=== PATIENT | female | born 1970 | race Caucasian/White ===

== ENCOUNTER 2021-08-25 08:38 | Emergency (ER) | payer BC, SELFPAY ==
[2021-08-25 08:59] VITALS: BP 108/72; PULSE 72; RESP 18; TEMP 35.9; O2SAT 100; BMI 23.5
[2021-08-25] MEDS: Ondansetron ODT 4 MG TAB.RAPDIS TRANSLINGU (09:03)
--- NOTE | 2021-08-25 09:52 | ED.HA ---
HPI - Headache General Chief Complaint: Headache Stated Complaint: migraine Time Seen by Provider: 08/25/21 09:47 Source: patient and family () Mode of arrival: ambulatory Limitations: no limitations History of Present Illness HPI Narrative: 51-year-old female 33 years history of migraine, presented with typical headache for her migraine since yesterday started at 13:00 yesterday, pain has been constant, described as severe 10/10, triggered yesterday with exercise after she ran, pain is associated with photophobia, nausea. Patient had similar migraines in the past come to the hospital usually responds well to Imitrex subQ. Patient is here requesting a shot of Imitrex. No family history of brain tumor or bleed or cerebral aneurysm. Related Data Previous Rx's Medication Instructions Recorded ondansetron 4 mg disintegrating 4 mg PO BEDTIME PRN 3 Days #10 tab 08/25/21 tablet Allergies Allergy/AdvReac Type Severity Reaction Status Date / Time No Known Allergies Allergy Verified 08/25/21 09:01 Review of Systems Review of Systems: All other systems are reviewed and are negative Constitutional: Reports as per HPI and Reports no additional constitutional complaints Eyes: Reports as per HPI and Reports no additional eye complaints Reports system reviewed and no additional complaints, except as documented Cardiovascular: Reports as per HPI and Reports no additional cardiovascular complaints Respiratory: Reports as per HPI and Reports no additional respiratory complaints Gastrointestinal: Reports as per HPI and Reports no additional gastrointestinal complaints Genitourinary: Reports no additional female genitourinary complaints Musculoskeletal: Reports no additional musculoskeletal complaints Skin/Breast: Reports system reviewed and no additional complaints, except as docu Psychiatric: Reports no additional psychiatric complaints Endocrine: Reports no additional endocrine complaints Hematologic/Lymphatic: Reports no additional hematologic/lymphatic complaints Allergic/Immunologic: Reports no additional allergic/immunologic complaints Reports system reviewed and no additional complaints, except as documented and Reports Abnormal speech present [facility] Past Medical History Medical History Migraine Social History Social History Advance Directives: Yes Advance Directives Information Provided: Yes Advance Directives on File: No Physical Exam Vital Signs: Vital Signs: Last Vital Signs Temp 96.7 F L 08/25/21 08:59 Pulse 57 08/25/21 10:20 Resp 16 08/25/21 10:20 BP 129/72 08/25/21 10:20 Pulse Ox 100 08/25/21 10:20 BMI result Body Mass Index 23.5 Vital signs have been reviewed as appeared to be correct. Blood pressure normal. Heart rate normal. Respiration rate normal. Temperature normal. Oxygen saturation normal. Appearance: Alert. Oriented X3. No acute distress. Head: Normal external exam. Normocephalic. Atraumatic. No Carrera signs noted. No raccoon eyes noted Eyes: PERRLA. EOMI. Conjunctiva and sclera normal. Eyelids normal. ENT: TM's Normal. Pharynx normal. Uvula midline. Moist mucous membranes. No trismus noted. No drooling noted. No muffled voice noted. Neck: Normal inspection. Neck supple. FROM. No adenopathy. Thyroid Normal. No meningeal signs. No neck mass noted. CVS: Normal heart rate and rhythm. Heart sound normal. No murmurs noted. Pulses normal throughout. Respiratory: No respiratory distress. Painless inspiration. Breath sounds normal. No wheezes/rales/rhonchi noted. Chest nontender. No accessory muscle usage noted or decreased air movement noted. Abdomen: Soft and nontender. Bowel sounds normal in all 4 quadrants. No distention noted. No organomegaly noted. No visible injury noted. Back: No CVA tenderness. Full range of motion noted. Skin: Skin warm and dry. Normal skin color. Normal skin turgor. No rashes/lesions/lacerations noted. Extremities: No lower extremity edema. Extremities exhibit normal range of motion. Extremities nontender. Neuro: Oriented X 3. Cranial nerve exam: II-XII are grossly intact No motor deficit. No sensory deficit. Reflexes normal. Course Course Course Narrative: Assessment and plan. 51-year-old female with many years history of migraine presented with headache, patient received Imitrex that usually relieve her symptoms, patient feels much better now, patient would like to go requesting a prescription for Zofran. Headache partially relieved now it is 1/10, no photophobia, no vomiting. Discharge Plan Discharge Clinical Impression: Migraine Patient Disposition: Home, Self-Care Instructions: Migraine Headache (ED) Prescriptions: New ondansetron 4 mg tablet,disintegrating 4 mg PO BEDTIME PRN (Reason: nausea and vomiting) 3 Days Qty: 10 0RF Referrals: Becky Neff MD [Primary Care Provider] - 2 days
[2021-08-25] MEDS: SUMAtriptan succinate 6 MG/0.5 ML VIAL SUBCUT (09:57)
[2021-08-25 10:20] VITALS: BP 129/72; PULSE 57; RESP 16; O2SAT 100
== END 2021-08-25 10:32 | disposition home or self-care (01) ==
PROVIDERS: Emergency Provider Emergency Medicine; PCP Internal Medicine
DX: G43.909 Migraine, unspecified, not intractable, without status migrainosus (principal)
CPT/HCPCS: 96372; 99284; J3030

== ENCOUNTER 2023-11-17 03:24 | Emergency (ER) | payer BC, SELFPAY ==
[2023-11-17 03:33] VITALS: BP 102/72; PULSE 78; RESP 16; TEMP 37.7; O2SAT 99; BMI 21.0
[2023-11-17] MEDS: Ondansetron ODT 4 MG TAB.RAPDIS TRANSLINGU (03:52)
--- OUTSIDE RECORDS SUMMARY | 2023-11-17 05:34 | XMS_ITS | Continuity of Care Document ---
Author Organization [facility] Address [address], 4t [place] [address]- Care Team Providers Care Archives Director Name Role Phone Becky Neff MD Primary Care Physician [place] [facility] [place] - 02/03/21 [facility] [address], [address]th [place] [address]- Attending Physician: Magdalena Patten Admitting Physician: Magdalena Patten Referring Physician: AdmtrMagdalena Allergies, Adverse Reactions, Alerts Substance Reaction Severity Status NKA Active Immunizations Given and Recorded Vaccine Date Status Refusal Reason influenza virus vaccine, inactivated 04/24/20 Madi rded tetanus/diphtheria/pertussis, acel(Tdap) 08/17/16 Given Medications acyclovir 400 mg oral tablet 1 capsule, By Mouth, 3 times a day, # 15 capsule, 3 Refills, Maintenance, 07/13/20 9:06:00 EST, Capsule, [id number], Partial fill upon patient request if the prescription is for a schedule IIopioid drug., 169, cm, 05/09/20 10:10:00 EST, Height Start Date: 07/13/20 Stop Date: 08/02/20 Status: Ordered Apri 0.15 mg-0.03 mg oral tablet 1 tablet, By Mouth, Daily, take 21 days of active tablets then skip placebos and start the next pack, # 84 tablet, 3 Refills, Maintenance, 12/07/20 8:27:00 EDT, Tablet, [id number], 1 tablet By Mouth Daily,Instr:take 21 days of active tablets t... Start Date: 12/07/20 Status: Ordered Golytely - oral powder for reconstitution See Instructions, as directed, # 1 each, 0 Refills, Maintenance, 06/27/20 13:26:00 EST, [facility]/pharmacy #[id number], Partial fill upon patient request if the prescription is for a schedule II opioid drug., asdirected, 169, cm, 05/09/20 10:10:00 EST, Height Start Date: 06/27/20 Status: Ordered Liletta 52 mg intrauterine device 1 each = 52 mg, Once, 0 Refills, Maintenance, 08/26/19 9:22:00 EST Start Date: 08/26/19 Status: Ordered Problem List Condition Effective Dates Status Health Status Inform ant Chronic constipation(Confirmed) 10/05/14 Active Family history of colon canc er in sister(Confirmed) Active Menorrhagia(Confirmed) Active Migraine(Confirmed) Active Pituitary microadenoma non-functioning(Confirmed) Active Thrombocytopenia(Confirmed) Active 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
--- OUTSIDE RECORDS SUMMARY | 2023-11-17 05:35 | XMS_ITS | Continuity of Care Document ---
Author Organization [facility] Address [address] [place] [address]- Care Team Providers Care County Administrator Name Role Phone Becky Neff MD Primary Care Physician [place] [facility] [place] 02/08/20 - 03/13/[address] [address]- [facility] Attending Physician: Becky Neff MD Admitting Physician: Becky Neff MD Referring Physician: Becky Neff MD Allergies, Adverse Reactions, Alerts Substance Reaction Severity Status NKA Active Immunizations Given and Recorded Vaccine Date Status Refusal Reason tetanus/diphtheria/pertussis, acel(Tdap) 08/17/16 Given Medications Apri 0.15 mg-0.03 mg oral tablet 1 tablet, By Mouth, Daily, # 84 tablet, 0 Refills, Maintenance, 03/04/20 8:00:00 EDT, Tablet, [id number], 1 tablet By Mouth Daily, 169, cm, 02/08/20 8:40:00 EDT, Height Start Date: 03/04/20 Status: Ordered Liletta 52 mg intrauterine device 1 each = 52 mg, Once, 0 Refills, Maintenance, 08/26/19 9:22:00 EST Start Date: 08/26/19 Status: Ordered Problem List Condition Effective Dates Status Health Status Inform ant Chronic constipation(Confirmed) 10/05/14 Active Family history of colon canc er in sister(Confirmed) Active IUD check up(Confirmed) Active Menorrhagia(Confirmed) Active Migraine(Confirmed) Active Pituitary microadenoma non-functioning(Confirmed) Active Thrombocytopenia(Confirmed) Active 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
--- OUTSIDE RECORDS SUMMARY | 2023-11-17 05:35 | XMS_ITS | Continuity of Care Document ---
Author Organization [facility] Address [address] [facility] [address] [facility] [address] [facility], 4t [place] [address]- Care Team Providers Care Marine Geologist Name Role Phone Tawanda DIALLO, Becky Corrigan Primary Care Physician [facility] [place] Date(s): 01/12/21 - [facility]/11/21 [facility] [address] [facility] [address] [facility], [address] [place] [address]- Allergies, Adverse Reactions, Alerts Substance Reaction Severity [...] each, 0 Refills, Maintenance, 06/27/20 13:26:00 EST, [facility]/pharmacy #[id number], Partial fill upon patient request if the [...]
--- OUTSIDE RECORDS SUMMARY | 2023-11-17 05:35 | XMS_ITS | Continuity of Care Document ---
Author Organization [facility] Address [address] [place] [address], [address]t [place] [address]- Care Team Providers Care Type Proof Reproducer Name Role Phone Becky Neff MD [id number] - 11[facility]08[facility] [address] [facility], [address] [place], [place] [address] Allergies, Adverse Reactions, Alerts No Known Allergies Immunizations Given and Recorded Vaccine Date Status Refusal Reason influenza virus vaccine, inactivated 07/19/22 Give n influenza virus vaccine, inactivated 04/24/20 Madi rded SARS-CoV-2 (COVID-19) mRNA-1273 vaccine 07/06/21 R ecorded SARS-CoV-2 (COVID-19) mRNA-1273 vaccine 10/31/20 R ecorded SARS-CoV-2 (COVID-19) mRNA-1273 vaccine 10/03/20 R ecorded tetanus/diphtheria/pertussis, acel(Tdap) 08/17/16 Given Medications acyclovir 400 mg oral tablet 1 capsule, By Mouth, 3 times a day, # 15 capsule, 3 Refills, Maintenance, 08/13/23 13:34:00 EST, Capsule, [id number], Partial fill upon patient request if the prescription is for a schedule II opioid drug., 168, cm, 07/23/23 8:38:00 EST, Height Start Date: 08/13/23 Stop Date: 09/02/23 Status: Ordered Apri 0.15 mg-0.03 mg oral tablet See Instructions, TAKE 1 TABLET BY MOUTH DAILY,TAKE 21 DAYS OF ACTIVE TABLETS THEN SKIP PLACEBOS & START THE NEXT PACK, # 112 tablet, 3 Refills, Maintenance, 09/23/23 10:49:00 EDT, [facility]/pharmacy #[id number], 84, TAKE 1 TABLET BY MOUTH DAILY,TAKE 21 DAYS OF A... Start Date: 09/23/23 Status: Ordered MiraLax = 17 Gm, By Mouth, Daily, 0 Refills, Maintenance, 07/17/21 11:35:00 EST, Partial fill upon patient request if the prescription is for a schedule II opioid drug. Start Date: 07/17/21 Status: Ordered SUMAtriptan 100 mg oral tablet See Instructions, TAKE 1 TABLET DAILY IF NEEDED FOR MIGRAINE, MAY REPEAT DOSE AFTER 2 HOURS UP TO AMAXIMUM OF 2, # 27 tablet, 11 Refills, Maintenance, 02/20/23 17:05:00 EDT, [facility]/pharmacy #[id number], 168,cm, 07/19/22 8:44:00 EST, Height Start Date: 02/20/23 Status: Ordered Problem List Condition Confirmation Course Effective Dates Status H ealth Status Informant Chronic constipation Confirmed 10/05/14 Active Family history of colon cancer in sister Confirmed Active Family history of stomach cancer 1 Confirmed Active History of uveitis Confirmed Active Menorrhagia Confirmed Active Migraine Confirmed Active Pituitary microadenoma non-functioning Confirmed Active Thrombocytopenia Confirmed Active Uses oral contraception Confirmed Active Uveitis right eye Confirmed 11/16/93 Active 1Father, maternal grandmother, maternal grandfather Social History Social History Type Response Smoking Status Never (less than 100 in lifetime) entered on: 06/09/18 Sex Patient Care team information Care Team Personnel Name: Arben Tamayo MD Position: [facility] Physician - Gastroenterology Member Role: Lifetime Consulting Physician Address: Address: [address] [place] [address], [address] [facility] [place] [address]- Name: Becky Neff MD Position: [facility] Physician - Primary Care Member Role: PCP Address: Address: [address] [facility] [place] [address]- Care Team Related Persons Name: CHRISSIE RANGEL Address: home [address] [place] [id number]
--- OUTSIDE RECORDS SUMMARY | 2023-11-17 05:35 | XMS_ITS | Continuity of Care Document ---
Author Organization [facility] Address [address], [address] [place] [address]- Care Team Providers Care Railcar Foreman Name Role Phone Tawanda DIALLO, Becky Corrigan Primary Care Physician [phone] Encounter [facility] Date(s): [facility]07[facility]20 [facility] [address], [address] [place] [address]- Allergies, Adverse Reactions, Alerts Substance Reaction Severity [...] each, 0 Refills, Maintenance, 06/27/20 13:26:00 EST, [facility]/pharmacy #[id number], Partial fill upon patient request if the prescription is for a schedule II opioid drug., asdirected, 169, cm, 05/09/20 10:10:00 EST, Height Start Date: 06/27/20 Status: Ordered Liletta 52 mg intrauterine device 1 each = 52 mg, Once, 0 Refills, Maintenance, 08/26/19 9:22:00 EST Start Date: 08/26/19 Status: Ordered Problem List Condition Effective Dates Status Health Status Inform ant Breakthrough bleeding(Confirmed) Active Chronic constipation(Confirmed) 10/05/14 Active Family history of colon canc er in sister(Confirmed) Active IUD check up(Confirmed) Active Menorrhagia(Confirmed) Active Migraine(Confirmed) Active Pituitary microadenoma non-functioning(Confirmed) Active Thrombocytopenia(Confirmed) Active 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
--- OUTSIDE RECORDS SUMMARY | 2023-11-17 05:35 | XMS_ITS | Continuity of Care Document ---
Author Organization [facility] Address [address] [place] [address]- Care Team Providers Care Data Support Specialist Name Role Phone Becky Neff MD Primary Care Physician En[place] [facility] [place] Date(s): 06/17/23 - 07/17/23 [facility] [address] [place] [address] Allergies, Adverse Reactions, Alerts No Known Allergies Immunizations Given and Recorded Vaccine Date Status Refusal Reason influenza virus vaccine, inactivated 07/19/22 Give n influenza virus vaccine, inactivated 04/24/20 Madi rded SARS-CoV-2 (COVID-19) mRNA-1273 vaccine 07/06/21 R ecorded SARS-CoV-2 (COVID-19) mRNA-1273 vaccine 10/31/20 R ecorded SARS-CoV-2 (COVID-19) mRNA-1273 vaccine 10/03/20 R ecorded tetanus/diphtheria/pertussis, acel(Tdap) 08/17/16 Given Medications acyclovir 400 mg oral tablet See Instructions, TAKE 1 TABLET BY MOUTH THREE TIMES A DAY FOR 5 DAYS, # 15 tablet, 3 Refills, [id number], 168, cm, 07/17/21 11:23:00 EST, Height, 64, kg, 09/22/20 9:20:00 EDT, Dry Weight Start Date: 10/19/21 Status: Ordered acyclovir 400 mg oral tablet 1 capsule, By Mouth, 3 times a day, # 15 capsule, 3 Refills, Maintenance, 07/13/20 9:06:00 EST, Capsule, [id number], Partial fill upon patient request if the prescription is for a schedule IIopioid drug., 169, cm, 05/09/20 10:10:00 EST, Height Start Date: 07/13/20 Stop Date: 08/02/20 Status: Ordered Apri 0.15 mg-0.03 mg oral tablet See Instructions, TAKE 1 TABLET BY MOUTH DAILY,TAKE 21 DAYS OF ACTIVE TABLETS THEN SKIP PLACEBOS & START THE NEXT PACK, # 112 tablet, 0 Refills, Maintenance, 06/05/23 13:24:00 EST, [id number], 84, TAKE 1 TABLET BY MOUTH DAILY,TAKE 21 DAYS OF ACTI... Start Date: 06/05/23 Status: Ordered MiraLax = 17 Gm, By [...] tablet, 11 Refills, Maintenance, 02/20/23 17:05:00 EDT, [facility]/pharmacy #[id number], 168,cm, 07/19/22 8:44:00 EST, Height Start [...] microadenoma non-functioning Confirmed Active Thrombocytopenia Confirmed Active Uveitis right eye Confirmed 11/16/93 Active 1Father, maternal grandmother, maternal grandfather Social History Social History Type Response Smoking Status Never (less than 100 in lifetime) entered on: 06/09/18 Sex Patient Care team information Care Team Personnel Name: Arben Tamayo MD Position: [facility] Physician - Gastroenterology Member Role: Lifetime Consulting Physician Address: Address: [address] [place] [address], [address] [facility] [address]- Name: Becky Neff MD Position: [facility] Physician - Primary Care Member Role: PCP Address: Address: [address] [facility] [place] [address]- Care Team Related Persons Name: CHRISSIE RANGEL Address: home [address] [place] [id number]
--- OUTSIDE RECORDS SUMMARY | 2023-11-17 05:35 | XMS_ITS | Continuity of Care Document ---
Author Organization [facility] Address [address] [facility], 4t [place] [address]- Care Team Providers Care Spiral Winder Name Role Phone Becky Neff MD Primary Care Physician [place] [facility] [place] 12/15/20 - 04/14/21 [facility] [address] [facility], [address] [place] [address]- Attending Physician: Toby DIALLO [OB], Swetha Garcia Referring Physician: Not on Staff, Referring MD Allergies, Adverse Reactions, Alerts Substance Reaction [...] 0 Refills, Maintenance, 06/27/20 13:26:00 EST, [facility]/pharmacy #[id number], Partial fill upon patient request if the [...]
--- OUTSIDE RECORDS SUMMARY | 2023-11-17 05:35 | XMS_ITS | Continuity of Care Document ---
Author Organization [facility] Address [address] [facility], 4t [place] [address]- Care Team Providers Care Taxonomist Name Role Phone Tawanda DIALLO, Becky Corrigan Primary Care Physician En[place] [facility] [place] Date(s): 12/15/20 - 01/18/21 [facility] [address] [facility], [address] [place] [address]- Attending Physician: Toby DIALLO [OB], Swetha Garcia Allergies, Adverse Reactions, Alerts Substance Reaction Severity [...] each, 0 Refills, Maintenance, 06/27/20 13:26:00 EST, [facility]/pharmacy #[id number], Partial fill upon patient request if [...]
--- OUTSIDE RECORDS SUMMARY | 2023-11-17 05:35 | XMS_ITS | Continuity of Care Document ---
Author Organization [facility] Address [address] [address]- Care Team Providers Care Teacher Aide Clerical Name Role Phone Becky Neff MD Primary Care Physician [place] [facility] [place] [id number] Date(s): 02/08/20 - 03/09/20 [facility] [address] [address]- [facility] Attending Physician: Magdalena Patten Admitting Physician: Magdalena [...]
--- OUTSIDE RECORDS SUMMARY | 2023-11-17 05:35 | XMS_ITS | Continuity of Care Document ---
Author Organization [facility] Address [address] [place] [address], [address] [place] [address]- Care Team Providers Care Diamond Die Driller Name Role Phone Becky Neff MD Primary Care Physician [id number] Date(s): 10/17/21 - 11/16/21 [facility] [address] [facility], [address] [place], [place] [address] [[email or web address]] Allergies, Adverse Reactions, Alerts No Known Allergies Immunizations Given and Recorded Vaccine Date Status Refusal Reason SARS-CoV-2 (COVID-19) mRNA-1273 vaccine 07/06/21 R ecorded SARS-CoV-2 (COVID-19) mRNA-1273 vaccine 10/31/20 R ecorded SARS-CoV-2 (COVID-19) mRNA-1273 vaccine 10/03/20 R ecorded influenza virus vaccine, inactivated 04/24/20 Madi rded tetanus/diphtheria/pertussis, acel(Tdap) 08/17/16 Given Medications acyclovir 400 mg oral tablet See Instructions, TAKE 1 TABLET BY MOUTH THREE TIMES A DAY FOR 5 DAYS, # 15 tablet, 3 Refills, [id number], 168, cm, 07/17/21 11:23:00 EST, Height, 64, kg, 09/22/20 9:20:00 EDT, Dry Weight Start Date: 10/19/21 Status: Ordered acyclovir 400 mg oral tablet 1 capsule, By Mouth, 3 times a day, # 15 capsule, 3 Refills, Maintenance, 07/13/20 9:06:00 EST, Capsule, [id number], Partial fill upon patient request if the prescription is for a schedule IIopioid drug., 169, cm, 11/02/20 10:10:00 EST, Height Start Date: 07/13/20 Stop Date: 08/02/20 Status: Ordered Problem List Condition Effective Dates Status Health Status Inform ant Chronic constipation(Confirmed) 10/05/14 Active Family history of colon canc er in sister(Confirmed) Active History of uveitis(Confirmed) Active Menorrhagia(Confirmed) Active Migraine(Confirmed) Active Pituitary microadenoma non-functioning(Confirmed) Active Thrombocytopenia(Confirmed) Active 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
--- OUTSIDE RECORDS SUMMARY | 2023-11-17 05:35 | XMS_ITS | Continuity of Care Document ---
Author Organization [facility] Address [address] [address]- Care Team Providers Care Buhr Mill Operator Name Role Phone Becky Neff MD Primary Care Physician [phone] Encounter [facility] [place] Date(s): 02/24/20 - 03/25/20 [facility] [address] [address]- [facility] Attending Physician: Magdalena Patten Admitting Physician: [...]
--- OUTSIDE RECORDS SUMMARY | 2023-11-17 05:35 | XMS_ITS | Continuity of Care Document ---
Author Organization [facility] [employer]ero [employer] [facility] Address [address] [facility], [address]t [place] [address]- Care Team Providers Care Director Of Compliance Name Role Phone Tawanda DIALLO, Becky Corrigan Primary Care Physician [phone] Encounter [facility] Date(s): 11/14/20 - 11/21/20 [facility] [employer] [facility] [address] [facility], [address] [place] [address]- Attending Physician: Toby DIALLO [OB], Swetha Garcia [...] Date: 07/13/20 Stop Date: 08/02/20 Status: Ordered doxycycline hyclate 100 mg oral capsule 1 capsule = 100 mg, By Mouth, Daily, for 14 days, # 14 each, 0 Refills, Acute 11/28/20 9:54:00 EDT,11/14/20 9:54:00 EDT, Capsule, [id number], Partial fill upon patient request if the prescription is for a schedule II opioid drug., 168, cm, 05... 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
--- OUTSIDE RECORDS SUMMARY | 2023-11-17 05:35 | XMS_ITS | Continuity of Care Document ---
Author Organization [facility] ed[facility] Address [address] [address]- Care Team Providers Care Admitting Supervisor Name Role Phone Becky Neff MD Primary Care Physician Encounter [facility] Date(s): 03/25/20 - 04/24/20 [facility] [address] [place] [address]- [facility] Allergies, Adverse Reactions, Alerts Substance Reaction Severity [...]
--- OUTSIDE RECORDS SUMMARY | 2023-11-17 05:35 | XMS_ITS | Continuity of Care Document ---
Author Organization [facility] Lucero n's [facility] Address [address] [facility], 4t [place] [address]- Care Team Providers Care Mold Hoister Name Role Phone Tawanda DIALLO, Becky Corrigan Primary Care Physician [facility] Date(s): 12/15/20 [facility] [employer] [facility] [address] [facility], [address]th [place] [address]- Allergies, Adverse Reactions, Alerts Substance Reaction Severity [...] each, 0 Refills, Maintenance, 06/27/20 13:26:00 EST, [facility]/pharmacy #[id number], Partial fill upon patient request if the [...]
--- OUTSIDE RECORDS SUMMARY | 2023-11-17 05:35 | XMS_ITS | Continuity of Care Document ---
Author Organization [facility] ter Address [address] [place] [address]- Care Team Providers Care Radio Program Checker Name Role Phone Tawanda DIALLO, Becky Corrigan Primary Care Physician Encounter [facility] Date(s): 08/26/19 - 08/26/[address] [address]- [facility] Attending Physician: Swetha Luis MD Allergies, Adverse Reactions, Alerts Substance Reaction Severity Status NKA Active Immunizations Given and Recorded Vaccine Date Status Refusal Reason tetanus/diphtheria/pertussis, acel(Tdap) 08/17/16 Given Medications Liletta 52 mg intrauterine device 1 each [...]
--- OUTSIDE RECORDS SUMMARY | 2023-11-17 05:35 | XMS_ITS | Continuity of Care Document ---
Author Organization [facility] [employer] [facility] Address [address] [place] [address], 4[address] [place] [address]- Care Team Providers Care Translator And Interpreter Name Role Phone Becky Neff MD Primary Care Physician En[place] [facility] Date(s): 01/22/22 - 02/21/22 [facility] [address] [place] [address], [address] [place], [place] [address] Allergies, Adverse Reactions, Alerts No Known Allergies [...] # 15 tablet, 3 [facility]ills, [facility], 168, cm, 07/17/21 11:23:00 EST, Height, 64, kg, 09/22/20 9:20:00 EDT, Dry Weight Start Date: 10/19/21 Status: Ordered acyclovir 400 mg oral tablet 1 capsule, By Mouth, 3 times a day, # 15 capsule, 3 Refills, Maintenance, 07/13/20 9:06:00 EST, Capsule, [id number], Partial fill upon patient request if the prescription is for a schedule IIopioid drug., 169, cm, 11/02/20 10:10:00 EST, Height Start Date: 07/13/20 Stop Date: 08/02/20 Status: Ordered Apri 0.15 mg-0.03 mg oral tablet See Instructions, 1 TABLET BY MOUTH DAILY,TAKE 21 DAYS OF ACTIVE TABLETS THEN SKIP PLACEBOS AND START THE NEXT PACK, # 112 tablet, 2 Refills, [facility], 84, 1 TABLET BY MOUTH DAILY,TAKE 21 DAYSOF ACTIVE TABLETS THEN SKIP PLACEBOS AND START THE... Start Date: 01/22/22 Status: Ordered Problem List Condition Effective Dates [...]
--- OUTSIDE RECORDS SUMMARY | 2023-11-17 05:35 | XMS_ITS | Continuity of Care Document ---
Author Organization [facility] Lucero n's [facility] Address [address] [facility], 4[address] [place] [address]- Care Team Providers Care Telecommunications Consultant Name Role Phone Tawanda DIALLO, Becky Corrigan Primary Care Physician [phone] Encounter [facility] Date(s): 12/20/22 - 01/19/23 [facility] [employer] [facility] [address] [facility], 4th [place] [address]- Allergies, Adverse Reactions, Alerts No Known Allergies [...] # 15 tablet, 3 Refills, [facility], 168, cm, 07/17/21 11:23:00 EST, Height, 64, kg, 09/22/20 9:20:00 EDT, Dry Weight Start Date: 10/19/21 Status: Ordered acyclovir 400 mg oral tablet 1 capsule, By Mouth, 3 times a day, # 15 capsule, 3 Refills, Maintenance, 07/13/20 9:06:00 EST, Capsule, [id number], Partial fill upon patient request if the prescription is for a schedule IIopioid drug., 169, cm, 05/09/20 10:10:00 EST, Height Start Date: 07/13/20 Stop Date: 08/02/20 Status: Ordered Apri 0.15 mg-0.03 mg oral tablet See Instructions, TAKE 1 TABLET BY MOUTH DAILY,TAKE 21 DAYS OF ACTIVE TABLETS THEN SKIP PLACEBOS & START THE NEXT PACK, # 112 tablet, 0 Refills, Maintenance, 12/20/22 11:35:00 EDT, [facility] STORE 06129, 84, TAKE 1 TABLET BY MOUTH DAILY,TAKE 21 DAYS OF ACTI... Start Date: 12/20/22 Status: Ordered MiraLax = 17 Gm, By [...] TO AMAXIMUM OF 2, # 27 tablet, 1 Refills, Maintenance, 01/15/23 13:19:00 EDT, [facility]/pharmacy #[id number], 168, cm, 07/19/22 8:44:00 EST, Height Start Date: 01/15/23 Status: Ordered Problem List Condition Confirmation Course [...] Team Personnel Name: Arben Tamayo MD Position: [facility] Physician - Gastroenterology Member Role: Lifetime Consulting Physician Address: Address: [address] [place] [address], [address] [facility] [place] [address]- Name: Becky Neff MD Position: [facility] Physician - Primary Care Member Role: PCP Address: Address: [address] [facility] [address]- Care Team Related Persons Name: CHRISSIE RANGEL Address: home [address] [place] [address]
--- OUTSIDE RECORDS SUMMARY | 2023-11-17 05:35 | XMS_ITS | Continuity of Care Document ---
Author Organization [facility] [facility] Address [address] [facility], 4t [place] [address]- Care Team Providers Care Core Sucker Name Role Phone Tawanda DIALLO, Becky Corrigan Primary Care Physician [facility] Date(s): 02/07/23 - 03/09/23 [facility] [employer] [facility] [address] [facility], [address]th [place] [address]- Allergies, Adverse Reactions, Alerts No Known Allergies [...] # 15 tablet, 3 Refills, [facility], 168, cm, 07/17/21 11:23:00 EST, Height, 64, kg, 09/22/20 9:20:00 EDT, Dry Weight Start Date: 10/19/21 Status: Ordered acyclovir 400 mg oral tablet 1 capsule, By Mouth, 3 times a day, # 15 capsule, 3 Refills, Maintenance, 07/13/20 9:06:00 EST, Capsule, [id number], Partial fill upon patient request if the [...] tablet, 0 Refills, Maintenance, 12/20/22 11:35:00 EDT, [facility] STORE 81896, 84, TAKE 1 TABLET BY MOUTH DAILY,TAKE [...] tablet, 11 Refills, Maintenance, 02/20/23 17:05:00 EDT, [facility]/pharmacy #[id number], 168,cm, 07/19/22 8:44:00 EST, Height Start [...] Team Personnel Name: Arben Tamayo MD Position: [facility] Physician - Gastroenterology Member Role: Lifetime Consulting Physician Address: Address: [address] [place] [address], [address] [facility] [place] [address]- Name: Becky Neff MD Position: [facility] Physician - Primary Care Member Role: PCP Address: Address: [address] [facility] [place] [address]- Care Team Related Persons Name: CHRISSIE RANGEL Address: home [address] [place] [address]
--- OUTSIDE RECORDS SUMMARY | 2023-11-17 05:35 | XMS_ITS | Continuity of Care Document ---
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 No prior studies are available. HISTORY: Shortness of breath and fever. FINDINGS: The cardiac silhouette is within normal limits for size. Hilar and mediastinal structuresare unremarkable. An azygos fissure and lobe are noted. Visualized osseous structures are unremarkable. IMPRESSION: No evidence of acute pulmonary disease. Examination 93951. Thank you for allowing me to participate in the care of this patient. WSN: [id number] Ordering Physician: Kamran Danielle Dictated By: Isreal Cotton MD Dictated Date/Time: 10/06/19 2:59 pm Reviewed By: Isreal Cotton MD Signed By: Isreal Cotton MD Signed Date/Time: 10/06/19 2:59 pm Transcribed By: PHAN Transcribed Date/Time: 10/06/19 2:58 pm Vital Signs Most recent to oldest [Reference Range]: 1 2 3 Oxygen Saturation [94-100 %] 99 % (10/06/19 3:55 PM) 100 % (10/06/19 2:21 PM) 99 % (10/06/19 12:30 PM) Pulse Rate [55-90 bpm] 80 bpm (10/06/19 3:55 PM) 73 bpm (10/06/19 2:21 PM) 87 bpm (10/06/19 12:30 PM) Blood Pressure [90-138/55-84 mm Hg] 113/70mm Hg (10/06/19 3:55 PM) 118/68mm Hg (10/06/19 12:30 PM) 102/70mm Hg (10/06/19 12:16 PM) Respiratory Rate [16-30 br/min] 16 br/min (10/06/19 3:55 PM) 16 br/min (10/06/19 2:21 PM) 19 br/min (10/06/19 12:30 PM) Temperature [96.8-100.4 DegF] 98 DegF (10/06/19 12:30 PM) 97.7 DegF (10/06/19 12:16 PM) Mode of Delivery (Oxygen) Room air (10/06/19 3:55 PM) Room air (10/06/19 2:21 PM) Room air (10/06/19 12:30 PM) Blood pressure sites Arm, left (10/06/19 3:55 PM) Arm, right (10/06/19 12:16 PM) Temperature Route Oral (10/06/19 12:30 PM) Oral (10/06/19 12:16 PM) Social History Social History Type Response Smoking Status Never (less than 100 in lifetime) entered on: 06/09/18 Sex
--- OUTSIDE RECORDS SUMMARY | 2023-11-17 05:35 | XMS_ITS | Continuity of Care Document ---
Author Organization [facility] [employer] [facility] Address [address] [facility], [address] [place] [address]- Care Team Providers Care Photographers' Model Name Role Phone Tawanda DIALLO, Becky Corrigan Primary Care Physician En[facility] Date(s): 08/26/19 - 10/21/19 [facility] [employer] [facility] [address] [facility], [address] [place] [address]- Attending Physician: Toby DIALLO, Swetha Garcia Allergies, Adverse Reactions, Alerts Substance [...]
--- OUTSIDE RECORDS SUMMARY | 2023-11-17 05:35 | XMS_ITS | Continuity of Care Document ---
Author Organization [facility] [employer] Address [address] [facility], 4t [place] [address]- Care Team Providers Care Conveyor Loader Name Role Phone Tawanda DIALLO, Becky Corrigan Primary Care Physician [phone] [place] [facility] Date(s): 12/15/20 - 01/14/21 [facility] Chilango [facility] [address] [facility], [address] [place] [address]- Allergies, Adverse Reactions, Alerts Substance Reaction Severity [...] each, 0 Refills, Maintenance, 06/27/20 13:26:00 EST, [facility]/pharmacy #[id number], Partial fill upon patient request if the [...]
--- OUTSIDE RECORDS SUMMARY | 2023-11-17 05:35 | XMS_ITS | Continuity of Care Document ---
Author Organization [facility] Address [address] [place] [address], 4[address] [place] [address]- Care Team Providers Care Pattern Weaver Name Role Phone Becky Neff MD Primary Care Physician Encounter [facility] Date(s): 10/16/21 - 11/15/21 [facility] [address] [facility], [address] [place], [place] [address] Allergies, Adverse Reactions, Alerts No [...] # 15 tablet, 3 Refills, [facility], 168, cm, 07/17/21 11:23:00 EST, Height, 64, kg, 09/22/20 9:20:00 EDT, Dry Weight Start Date: 10/19/21 Status: Ordered acyclovir 400 mg oral tablet 1 capsule, By Mouth, 3 times a day, # 15 capsule, 3 Refills, Maintenance, 07/13/20 9:06:00 EST, Capsule, [id number], Partial fill upon patient request if the [...]
--- OUTSIDE RECORDS SUMMARY | 2023-11-17 05:35 | XMS_ITS | Continuity of Care Document ---
Author Organization [facility] [employer] [facility] Address [address] [facility], 4t [place] [address]- Care Team Providers Care Machine Stuffer Name Role Phone Tawanda DIALLO, Becky Corr[facility] Primary Care Physician Encounter [facility] Date(s): 11/13/22 - 03/13/23 [facility] [employer] [facility] [address] [facility], [address] [place] [address]- Attending Physician: Toby DIALLO [OB], Swetha Garcia Allergies, Adverse Reactions, Alerts No Known Allergies [...] # 15 tablet, 3 Refills, [facility], 168, cm, 07/17/21 11:23:00 EST, Height, 64, [...] tablet, 0 Refills, Maintenance, 12/20/22 11:35:00 EDT, [facility] STORE 77418, 84, TAKE 1 TABLET BY MOUTH DAILY,TAKE [...] tablet, 11 Refills, Maintenance, 02/20/23 17:05:00 EDT, [facility]/pharmacy #[id number], 168,cm, 07/19/22 8:44:00 EST, Height [...] Name: Arben Tamayo MD Position: [facility] Physician - Gastroenterology Member Role: Lifetime Consulting Physician Address: Address: [address] [place] [address], [address] [facility] [place] [address]- Name: Becky Neff MD Position: [facility] Physician - Primary Care Member Role: PCP Address: Address: [address] [place] [address] [place] [address]- Care Team Related Persons Name: CHRISSIE RANGEL Address: home [address] [place] [address]
--- OUTSIDE RECORDS SUMMARY | 2023-11-17 05:35 | XMS_ITS | Continuity of Care Document ---
Author Organization [facility] Lucero n's [facility] Address [address] [facility], 4[address] [place] [address]- Care Team Providers Care Plant Technical Specialist Name Role Phone Tawanda DIALLO, Becky [facility] Primary Care Physician [place] [facility] [place] Date(s): 12/20/20 - 01/19/21 [facility] Chilango [employer] [facility] [address] [facility], [address] [place] [address]- Allergies, Adverse Reactions, Alerts Substance Reaction Severity [...] 13:26:00 EST, [facility]/pharmacy #[id number], Partial fill upon patient request if the [...]
--- OUTSIDE RECORDS SUMMARY | 2023-11-17 05:35 | XMS_ITS | Continuity of Care Document ---
Author Organization [facility] [employer] [facility] Address [address] [facility], 4[address] [place] [address]- Care Team Providers Care Emergency Room Orderly Name Role Phone Becky Neff MD Primary Care Physician En[facility] Date(s): 11/04/19 - 12/04/19 [facility] [employer] [facility] [facility] [address] [facility], [address]th [place] [address]- [facility] Attending Physician: Magdalena Patten Admitting Physician: Magdalena Patten Referring Physician: Magdalena Patten Allergies, Adverse Reactions, Alerts Substance Reaction Severity Status NKA Active Immunizations Given and Recorded Vaccine Date Status Refusal Reason tetanus/diphtheria/pertussis, acel(Tdap) 08/17/16 Given Medications Imitrex 25 mg oral tablet 1 tablet = 25 mg, By Mouth, Daily, PRN for migraine headache, may repeat dose after 2 hours up to amaximum of 2, # 18 tablet, 0 Refills, Maintenance, 11/04/19 9:43:00 EDT, Tablet Start Date: 11/04/19 Status: Ordered Liletta 52 mg intrauterine device [...]
--- OUTSIDE RECORDS SUMMARY | 2023-11-17 05:35 | XMS_ITS | Continuity of Care Document ---
Author Organization [facility] ter Address [address] [place] [address]- Care Team Providers Care Server Support Technician Name Role Phone Becky Neff MD Primary Care Physician [phone] [facility] [place] [place] Date(s): 09/22/20 - 09/22/[address] [address] Discharge Disposition: A-D/C Home Attending Physician: Arben Tamayo MD Admitting Physician: Arben Tamayo MD Referring Physician: Arben Tamayo MD Allergies, Adverse Reactions, Alerts Substance Reaction [...] Date: 07/13/20 Stop Date: 08/02/20 Status: Ordered Golytely - oral powder for reconstitution See Instructions, as directed, # 1 each, 0 Refills, Maintenance, 06/27/20 13:26:00 EST, [id number], Partial fill upon patient request [...] Thrombocytopenia(Confirmed) Active 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 Procedures Procedure Date Related Diagnosis Body Site Status Colonoscopy 09/22/20 Completed Vital Signs Most recent to oldest [Reference Range]: 1 2 3 Height 168 cm (09/22/20 9:20 AM) Oxygen Saturation [94-100 %] 100 % (09/22/20 11:00 AM) 100 % (09/22/20 10:45 AM) 99 % (09/22/20 9:20 AM) Pulse Rate [55-90 bpm] 66 bpm (09/22/20 9:20 AM) Blood Pressure [90-138/55-84 mm Hg] 98/65mm Hg (09/22/20 11:00 AM) 95/58mm Hg (09/22/20 10:45 AM) 96/68mm Hg (09/22/20 9:20 AM) Respiratory Rate [16-30 br/min] 16 br/min (09/22/20 11:00 AM) 16 br/min (09/22/20 10:45 AM) 18 br/min (09/22/20 9:20 AM) Temperature [96.8-100.4 DegF] 98.2 DegF (09/22/20 9:20 AM) Mode of Delivery (Oxygen) Room air (09/22/20 11:00 AM) Room air (09/22/20 10:45 AM) Room air (09/22/20 9:20 AM) Blood pressure sites Arm, left (09/22/20 11:00 AM) Arm, left (09/22/20 10:45 AM) Arm, left (09/22/20 9:20 AM) Temperature Route Temporal (09/22/20 9:20 AM) Dry Weight 64 kg (09/22/20 9:20 AM) Dry Weight Obtained Via Patient/family s tated (09/22/20 9:20 AM) Social History Social History Type Response Smoking Status Never (less than 100 in lifetime) entered on: 06/09/18 Sex
--- OUTSIDE RECORDS SUMMARY | 2023-11-17 05:35 | XMS_ITS | Continuity of Care Document ---
Author Organization [facility] edicine Address [address] [address]- Care Team Providers Care Freight Rate Clerk Name Role Phone Becky Neff MD Primary Care Physician [place] [facility] Date(s): 02/23/20 - 03/24/20 [facility] [address] [address]- [facility] Allergies, Adverse Reactions, Alerts Substance Reaction Severity [...]
--- OUTSIDE RECORDS SUMMARY | 2023-11-17 05:35 | XMS_ITS | Continuity of Care Document ---
Author Organization [facility] [employer] [facility] Address [address] [facility], 4t [place] [address]- Care Team Providers Care Platen Press Feeder Name Role Phone Tawanda DIALLO, Becky Cor[facility] Primary Care Physician En[facility] Date(s): 12/07/20 - 12/14/20 [facility]u [facility] [address] [facility], [address] [place] [address]- Attending Physician: Toby DIALLO [OB], Swetha Garcia [...] each, 0 Refills, Maintenance, 06/27/20 13:26:00 EST, [facility]/pharmacy #[id number], Partial fill upon patient request if [...] oldest [Reference Range]: 1 Height 168 cm (12/07/20 8:12 AM) Weight 64.87 kg (12/07/20 8:12 AM) Body Mass Index [18.5-24.99] 22.98 (12/07/20 8:12 AM) Blood Pressure [90-138/55-84 mm Hg] 96/6 4mm Hg (12/07/20 8:12 AM) Blood pressure sites Arm, right (12/07/20 8:12 AM) Weight Obtained Via Standing scale (12/07/20 8:12 AM) Social History Social History Type Response Smoking Status Never (less than 100 in lifetime) entered on: 06/09/18 Sex
--- OUTSIDE RECORDS SUMMARY | 2023-11-17 05:35 | XMS_ITS | Continuity of Care Document ---
Author Organization [facility] edicine Address [address] [address]- Care Team Providers Care Casting Chipper Name Role Phone Becky Neff MD Primary Care Physician [phone] Encounter [facility] Date(s): 03/25/20 - 04/24/20 [facility] [address] [place] [address] [facility] Allergies, Adverse Reactions, Alerts Substance Reaction [...]
--- OUTSIDE RECORDS SUMMARY | 2023-11-17 05:35 | XMS_ITS | Continuity of Care Document ---
Author Organization [facility] Lucero [employer] [facility] Address [address] [place] [address], [address]t [place] [address]- Care Team Providers Care Grief Counselor Name Role Phone Becky Neff MD Primary Care Physician [id number] 10[facility]10[facility]23 - 11/09/23 [facility] Chilango MiraGame [employer] [facility] [address], [address] [place], [place] [address] Allergies, Adverse Reactions, Alerts No Known Allergies [...] Refills, Maintenance, 08/13/23 13:34:00 EST, C[facility], [id number], Partial fill upon patient request if the [...] tablet, 3 Refills, Maintenance, 09/23/23 10:49:00 EDT, [facility]/pharmacy #[id number], 84, TAKE 1 TABLET BY [...] tablet, 11 Refills, Maintenance, 02/20/23 17:05:00 EDT, [facility]/pharmacy #[id number], 168,cm, 07/19/22 8:44:00 EST, Height [...] Team Personnel Name: Arben Tamayo MD Position: [facility] Physician - Gastroenterology Member Role: Lifetime Consulting Physician Address: Address: [address] [place] [address], [address] [facility] [place] [address]- Name: Becky Neff MD Position: [facility] Physician - Primary Care Member Role: PCP Address: Address: [address] [place] [address]- Care Team Related Persons Name: CHRISSIE RANGEL Address: home [address] [place] [id number]
--- OUTSIDE RECORDS SUMMARY | 2023-11-17 05:35 | XMS_ITS | Continuity of Care Document ---
Author Organization [facility] [employer]ero [employer]Sh[employer] [facility] Address [address] [facility], 4t [place] [address]- Care Team Providers Care Male Impersonator Name Role Phone Tawanda DIALLO, Becky Corrigan Primary Care Physician [place] [facility] 01/04[place]21 - 01/11/21 [facility] Chilangowu MeyersShanghai [employer] [facility] [address], [address]th [place] [address]- Attending Physician: Silverio Martinez MD Admitting Physician: Toby DIALLO [OB], Swetha Garcia Referring Physician: Toby DIALLO [OB], Swetha Garcia Allergies, [...] each, 0 Refills, Maintenance, 06/27/20 13:26:00 EST, [facility]/pharmacy #[id number], Partial fill upon patient request if the [...] oldest [Reference Range]: 1 Height 168 cm (01/04/21 11:39 AM) Weight 65.1 kg (01/04/21 11:39 AM) Body Mass Index [18.5-24.99] 23.07 (01/04/21 11:39 AM) Blood Pressure [90-138/55-84 mm Hg] 99/6 6mm Hg (01/04/21 11:39 AM) Blood pressure sites Arm, right (01/04/21 11:39 AM) Weight Obtained Via Standing scale (01/04/21 11:39 AM) Social History Social History Type Response Smoking Status Never (less than 100 in lifetime) entered on: 06/09/18 Sex
--- OUTSIDE RECORDS SUMMARY | 2023-11-17 05:35 | XMS_ITS | Continuity of Care Document ---
Author Organization [facility] Chilango Barker nInvitedHomes [facility] Address [address] [facility], 4[place] [address]- Care Team Providers Care Steamblaster Name Role Phone Tawanda DIALLO, Becky Corrigan Primary Care Physician [place] [facility]s): 11/04/19 - 11/11/19 [facility] Berwickwu MeyersInvitedHomes [facility] [address] [facility], [address]th [place] [address]- [facility] Attending Physician: Swetha Luis MD Allergies, Adverse [...] recent to oldest [Reference Range]: 1 Height 169 cm (11/04/19 9:41 AM) Weight 65.33 kg (11/04/19 9:41 AM) Body Mass Index [18.5-24.99] 22.87 (11/04/19 9:41 AM) Blood Pressure [90-138/55-84 mm Hg] 108/ 64mm Hg (11/04/19 9:41 AM) Blood pressure sites Arm, right (11/04/19 9:41 AM) Weight Obtained Via Standing scale (11/04/19 9:41 AM) Social History Social History Type Response Smoking Status Never (less than 100 in lifetime) entered on: 06/09/18 Sex
--- OUTSIDE RECORDS SUMMARY | 2023-11-17 05:35 | XMS_ITS | Continuity of Care Document ---
Author Organization [facility] [employer] Address [address] [facility], 4t [place] [address]- Care Team Providers Care Quality Improvement Specialist Name Role Phone Tawanda DIALLO, Becky Corrigan Primary Care Physician En[facility] Date(s): 12/14/20 - 01/13/21 [facility] Chilango MeyersSponsifys [facility] [address] [facility], [address] [place] [address]- Allergies, Adverse Reactions, Alerts Substance Reaction Severity [...] each, 0 Refills, Maintenance, 06/27/20 13:26:00 EST, [facility]/pharmacy #[id number], Partial fill upon patient request if the [...]
--- OUTSIDE RECORDS SUMMARY | 2023-11-17 05:35 | XMS_ITS | Continuity of Care Document ---
Author Organization [facility] [employer] Address [address] [facility], 4[address] [place] [address]- Care Team Providers Care Radio Producer Name Role Phone Tawanda DIALLO, Becky Corrigan Primary Care Physician Encounter [facility] Date(s): 11/04/20 - 12/04/20 [facility] Scott [employer] [facility] [address] [facility], [address]th [place] [address]- Allergies, Adverse Reactions, Alerts Substance Reaction Severity [...]
--- OUTSIDE RECORDS SUMMARY | 2023-11-17 05:35 | XMS_ITS | Continuity of Care Document ---
Author Organization [facility] Lucero n's [facility] Address [address] [place] [address], 4[place] [address]- Care Team Providers Care Ordnance Artificer Name Role Phone Becky Neff MD Primary Care Physician [phone] Encounter [facility] Date(s): 08/08/23 - 09/07/23 [facility] Pelionwu MeyersSimpleviews [facility] [address] [facility], 4[address] [place] [address]- Allergies, Adverse Reactions, Alerts No Known Allergies [...] Refills, Maintenance, 08/13/23 13:34:00 EST, [facility], [id number], Partial fill upon patient request if the prescription is for a schedule II opioid drug., 168, cm, 07/23/23 8:38:00 EST, Height Start Date: 08/13/23 Stop Date: 09/02/23 Status: Ordered Apri 0.15 mg-0.03 mg oral tablet See Instructions, TAKE 1 TABLET BY MOUTH DAILY,TAKE 21 DAYS OF ACTIVE TABLETS THEN SKIP PLACEBOS & START THE NEXT PACK, # 112 tablet, 0 Refills, Maintenance, 08/26/23 8:04:00 EST, [facility] STORE [id number], 84, TAKE 1 TABLET BY MOUTH DAILY,TAKE 21 DAYS OF ACTIV... Start Date: 08/26/23 Status: Ordered MiraLax = 17 Gm, By [...] tablet, 11 Refills, Maintenance, 02/20/23 17:05:00 EDT, [facility]/pharmacy #[id number], 168,cm, 07/19/22 8:44:00 EST, Height Start [...] Team Personnel Name: Arben Tamayo MD Position: [facility] Physician - Gastroenterology Member Role: Lifetime Consulting Physician Address: Address: [address] [place] [address], [address] [facility] [place] [address]- Name: Becky Neff MD Position: [facility] Physician - Primary Care Member Role: PCP Address: Address: [address] [facility] [place] [address]- Care Team Related Persons Name: CHRISSIE RANGEL Address: home [address] [place] [id number]
--- OUTSIDE RECORDS SUMMARY | 2023-11-17 05:35 | XMS_ITS | Continuity of Care Document ---
Author Organization [facility] Lucero n's [facility] Address [address] [facility] [place], 4t [place] [address]- Care Team Providers Care Gun Sealing Machine Operator Name Role Phone Tawanda DIALLO, Becky Corrigan Primary Care Physician En[place] [facility] Date(s): 09/21/19 - 10/01/19 [facility] Chilangowu MeyersJobools [facility] [address] [facility] [place], [address] [place] [address]- Attending Physician: Magdalena Patten Admitting Physician: Magdalena [...]
--- OUTSIDE RECORDS SUMMARY | 2023-11-17 05:35 | XMS_ITS | Continuity of Care Document ---
Author Organization [facility] ter Address [address] [place] [address]- Care Team Providers Care City Distribution Clerk Name Role Phone Becky Neff MD Primary Care Physician [phone] [place] [facility] Date(s): 11/21/20 - 01/22/[address] [address] Attending Physician: Toby DIALLO [OB], Swetha Garcia Admitting Physician: Toby DIALLO [OB], Swetha Garcia [...] each, 0 Refills, Maintenance, 06/27/20 13:26:00 EST, [facility]/pharmacy #[id number], Partial fill upon patient request if the [...]
--- OUTSIDE RECORDS SUMMARY | 2023-11-17 05:35 | XMS_ITS | Continuity of Care Document ---
Author Organization [facility] ter Address [address] [place] [address]- Care Team Providers Care Helper Maintenance Cleaning Name Role Phone Becky Neff MD Primary Care Physician En[place] [facility] Date(s): 02/10/20 - 04/16/[address] [address]- [facility] Attending Physician: Servando Clark MD Admitting Physician: Servando Clark MD Referring Physician: Nona Mckeon DO Allergies, Adverse Reactions, Alerts Substance Reaction Severity [...]
--- OUTSIDE RECORDS SUMMARY | 2023-11-17 05:35 | XMS_ITS | Continuity of Care Document ---
Author Organization [facility] Luc[employer] [facility] Address [address] [facility], 4t [place] [address]- Care Team Providers Care Cartridge Loader Name Role Phone Tawanda DIALLO, Becky Corrigan Primary Care Physician [facility] Date(s): 12/19/20 - 01/18/21 [facility] [address] [facility] [facility], 4th [place] [address]- Allergies, Adverse Reactions, Alerts Substance Reaction Severity Status NKA Active Immunizations Given and Recorded Vaccine Date Status Refusal Reason influenza virus vaccine, inactivated 04/24/20 Madi rded tetanus/diphtheria/pertussis, acel(Tdap) 08/17/16 Given Medications acyclovir 400 mg oral tablet 1 capsule, By Mouth, 3 times a day, # 15 capsule, 3 Refills, Maintenance, 07/13/20 9:06:00 EST, Capsule, [facility]/pharmacy #[id number], Partial fill upon patient request if [...] each, 0 Refills, Maintenance, 06/27/20 13:26:00 EST, [facility]/pharmacy #[id number], Partial fill upon patient request if the [...]
--- OUTSIDE RECORDS SUMMARY | 2023-11-17 05:35 | XMS_ITS | Continuity of Care Document ---
Author Organization [facility] Lucero ns [facility] Address [address] [facility], 4t [place] [address]- Care Team Providers Care Pan Shover Name Role Phone Tawanda DIALLO, Becky Corrigan Primary Care Physician Encounter [facility] Date(s): 09/11/22 - 10/11/22 [facility] Chilangowu MeyersForemosts [facility] [address] [facility], [address]th [place] [address]- Allergies, Adverse Reactions, Alerts No Known Allergies [...] # 15 tablet, 3 Refills, [id number], 168, cm, 07/17/21 11:23:00 EST, Height, 64, kg, 09/22/20 9:20:00 EDT, Dry Weight Start Date: 10/19/21 Status: Ordered acyclovir 400 mg oral tablet 1 capsule, By Mouth, 3 times a day, # 15 capsule, 3 Refills, Maintenance, 07/13/20 9:06:00 EST, [facility], [id number], Partial fill upon patient request if the prescription is for a schedule IIopioid drug., 169, cm, 05/09/20 10:10:00 EST, Height Start Date: 07/13/20 Stop Date: 08/02/20 Status: Ordered Apri 0.15 mg-0.03 mg oral tablet See Instructions, 1 TABLET BY MOUTH DAILY,TAKE 21 DAYS OF ACTIVE TABLETS THEN SKIP PLACEBOS AND START THE NEXT PACK, # 112 tablet, 0 Refills, 09/11/22 11:19:00 EST, [facility]/pharmacy #[id number], 84, 1 TABLET BY MOUTH DAILY,TAKE 21 DAYS OF ACTIVE TABLETS THEN SK... Start Date: 09/11/22 Status: Ordered MiraLax = 17 Gm, By [...] TO AMAXIMUM OF 2, # 27 tablet, 5 Refills, Maintenance, 06/29/22 12:47:00 EST, [facility], 168, cm,07/17/21 11:23:00 EST, Height, 64, kg, 09/22/20 9:2... Start Date: 06/29/22 Status: Ordered Problem List Condition Confirmation Course [...] Team Personnel Name: Arben Tamayo MD Position: [facility] GI MD Member Role: Lifetime Consulting Physician Address: Address: [address] [place] [address], [address] [facility] [place] [address]- Name: Becky Neff MD Position: [facility] Primary Care Physician Member Role: PCP Address: Address: [address] [facility] [place] [address]- Care Team Related Persons Name: CHRISSIE RANGEL Address: home [address] [place] [address]
--- OUTSIDE RECORDS SUMMARY | 2023-11-17 05:35 | XMS_ITS | Continuity of Care Document ---
Author Organization [facility] Address [address] [place] [address]- Care Team Providers Care Commercial Credit Specialist Name Role Phone Becky Neff MD Primary Care Physician En[facility] Date(s): 06/06/23 - 07/06/23 [facility] [address] [place] [address] Attending Physician: AdmMagdalena marti Admitting Physician: AdmtrMagdalena Referring Physician: Admtr, Ar8 Allergies, Adverse Reactions, Alerts No Known Allergies [...] # 15 tablet, 3 Refills, [facility], 168, cm, 07/17/21 11:23:00 EST, Height, 64, kg, 09/22/20 9:20:00 EDT, Dry Weight Start Date: 10/19/21 Status: Ordered acyclovir 400 mg oral tablet 1 capsule, By Mouth, 3 times a day, # 15 capsule, 3 Refills, Maintenance, 07/13/20 9:06:00 EST, [facility], [id number], Partial fill upon patient request if the [...] tablet, 0 Refills, Maintenance, 06/05/23 13:24:00 EST, [facility] STORE 83930, 84, TAKE 1 TABLET BY MOUTH DAILY,TAKE [...] tablet, 11 Refills, Maintenance, 02/20/23 17:05:00 EDT, [facility]/pharmacy #[id number], 168,cm, 07/19/22 8:44:00 EST, [...] 100 in lifetime) entered on: 06/09/18 Sex Radiology * Event Display: MRI Head, Non- BH Authored Date: * Event Display: MRI Head, Non- BH Authored Date: * Event Display: MRI Head, Non- BH Authored Date: Patient Care team information Care Team Personnel Name: Arben Tamayo MD Position: [facility] Physician - Gastroenterology Member Role: Lifetime Consulting Physician Address: Address: [address] [facility], [address] [facility] [place] [address]- Name: Becky Neff MD Position: [facility] Physician - Primary Care Member Role: PCP Address: Address: [address] [facility] [place] [address]- Care Team Related Persons Name: CHRISSIE RANGEL Address: home [address] [place] [id number]
--- OUTSIDE RECORDS SUMMARY | 2023-11-17 05:35 | XMS_ITS | Continuity of Care Document ---
Author Organization [facility] Address [address] [address]- Care Team Providers Care Conche Operator Name Role Phone Becky Neff MD Primary Care Physician [place] [facility] [place] 02/24/20 - 03/02/20 [facility] [address] [address]- [place] Attending Physician: Becky Neff MD Admitting Physician: [...]
--- OUTSIDE RECORDS SUMMARY | 2023-11-17 05:35 | XMS_ITS | Continuity of Care Document ---
Author Organization [facility] Chilango Barker [employer] [facility] Address [address] [facility], 4t [place] [address]- Care Team Providers Care Carpenter Helper Hardwood Flooring Name Role Phone Becky Neff MD Primary Care Physician [phone] En[place] [facility] [place] Date(s): 08/05/19 - 08/12/19 [facility] Chilangowu [facility]Pur[facility] [address] [facility], 4th [place] [address]- Attending Physician: Swetha Luis MD Referring Physician: Becky Neff MD Allergies, Adverse Reactions, Alerts Substance Reaction Severity Status NKA Active Immunizations Given and Recorded Vaccine Date Status Refusal Reason tetanus/diphtheria/pertussis, acel(Tdap) 08/17/16 Given Medications No Known Medications Problem List Condition Effective Dates Status Health Status Inform ant Chronic constipation(Confirmed) 10/05/14 Active Family history of colon canc er in sister(Confirmed) Active Menorrhagia(Confirmed) Active Migraine(Confirmed) Active Pituitary microadenoma non-functioning(Confirmed) Active Thrombocytopenia(Confirmed) Active 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
--- OUTSIDE RECORDS SUMMARY | 2023-11-17 05:35 | XMS_ITS | Continuity of Care Document ---
Author Organization [facility] Lucero [employer] [facility] Address [address] [facility], [address] [address]- Care Team Providers Care Conveyor Mechanic Name Role Phone Becky Neff MD Primary Care Physician [place] [facility] [place] 02/29/20 - 03/30/20 [facility] [place] [employer] [address] [facility], [address]th [place] [address]- [facility] Allergies, Adverse Reactions, Alerts Substance [...]
--- OUTSIDE RECORDS SUMMARY | 2023-11-17 05:35 | XMS_ITS | Continuity of Care Document ---
Author Organization [facility] Lucero n's [facility] Address [address] [facility], 4t [place] [address]- Care Team Providers Care Stock Mover Name Role Phone Tawanda DIALLO, Becky Corrigan Primary Care Physician [phone] [place] [facility](s): 08/05/19 - 08/15/19 [facility] [employer] MeyersCoverPage Publish[employer] [facility] [address] [facility], [address]th [place] [address]- Attending Physician: Magdalena Patten Admitting Physician: Magdalena Patten Referring Physician: Magdalena Patten Allergies, Adverse Reactions, Alerts Substance Reaction Severity Status NKA Active Immunizations Given and Recorded Vaccine Date Status Refusal Reason tetanus/diphtheria/pertussis, acel(Tdap) 08/17/16 Given Problem List Condition Effective Dates Status Health Status Inform ant Chronic constipation(Confirmed) 10/05/14 Active Family history of colon canc er in sister(Confirmed) Active Menorrhagia(Confirmed) Active Migraine(Confirmed) Active Pituitary microadenoma non-functioning(Confirmed) Active Thrombocytopenia(Confirmed) Active 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
--- OUTSIDE RECORDS SUMMARY | 2023-11-17 05:36 | XMS_ITS | Continuity of Care Document ---
Author Organization [facility] Lucero n[facility] Laborator[employer] Address [address] [facility], 4t [place] [address]- Care Team Providers Care Sports Teacher Name Role Phone Tawanda DIALLO, Becky Corrigan Primary Care Physician En[place] [facility] [place] Date(s): 12/15/20 - 01/22/21 [facility] MeyersCharl[facility] Laboratori[facility] [address] [facility], 4th [place] [address]- Attending Physician: Buster DIALLO, Ebenezer Coughlin Allergies, Adverse Reactions, Alerts Substance Reaction Severity [...] each, 0 Refills, Maintenance, 06/27/20 13:26:00 EST, [facility]/pharmacy #[id number], Partial fill upon patient request [...]
--- OUTSIDE RECORDS SUMMARY | 2023-11-17 05:36 | XMS_ITS | Continuity of Care Document ---
Author Organization [facility] Chilango Barker nAERON [employer] [facility] Address [address] [facility], 4t [place] [address]- Care Team Providers Care Heddle Machine Operator Name Role Phone Becky Neff MD Primary Care Physician [phone] [place] [facility] [place](s): 08/26/19 - 09/02/19 [facility] Chilangowu MeyersAERON [employer] [facility] [address] [facility], 4th [place] [address]- Attending Physician: Swetha Luis MD Referring Physician: [...] oldest [Reference Range]: 1 Height 169 cm (08/26/19 8:48 AM) Weight 69.47 kg (08/26/19 8:48 AM) Body Mass Index [18.5-24.99] 24.32 (08/26/19 8:48 AM) Blood Pressure [90-138/55-84 mm Hg] 114/ 73mm Hg (08/26/19 8:48 AM) Blood pressure sites Arm, right (08/26/19 8:48 AM) Weight Obtained Via Standing scale (08/26/19 8:48 AM) Social History Social History Type Response Smoking Status Never (less than 100 in lifetime) entered on: 06/09/18 Sex
--- OUTSIDE RECORDS SUMMARY | 2023-11-17 05:36 | XMS_ITS | Continuity of Care Document ---
Author Organization [facility] Address [address] [place] [address], 4t [place] [address]- Care Team Providers Care Large Sheetfed Press Operator Name Role Phone Becky Neff MD Primary Care Phys[id number] Date[facility]s): [facility]/23/23 - 09/30/23 [facility] [place] [facility] [address] [facility], [address] [place], [place] [address] Attending Physician: Jesse Fink MD Admitting Physician: Toby DIALLO [OB], Swetha Garcia Referring Physician: Becky Neff MD Allergies, Adverse Reactions, Alerts No Known Allergies [...] Refills, Maintenance, 08/13/23 13:34:00 EST, Capsule, [id number], Partial fill upon patient request if the [...] tablet, 3 Refills, Maintenance, 09/23/23 10:49:00 EDT, [facility]/pharmacy #[id number], 84, TAKE 1 TABLET [...] tablet, 11 Refills, Maintenance, 02/20/23 17:05:00 EDT, [facility]/pharmacy #[id number], 168,cm, 07/19/22 8:44:00 EST, [...] 11/16/93 Active 1Father, maternal grandmother, maternal grandfather Vital Signs Most recent to oldest [Reference Range]: 1 Height 168 cm (09/23/23 10:39 AM) Weight 61.8 kg (09/23/23 10:39 AM) Pulse Rate [55-90 bpm] 77 bpm (09/23/23 10:39 AM) Body Mass Index [18.5-24.99 kg/m2] 21.9 kg/m2 (09/23/23 10:39 AM) Blood Pressure [90-138/55-84 mm Hg] 113/ 56mm Hg (09/23/23 10:39 AM) Blood pressure sites Arm, right (09/23/23 10:39 AM) Dry Weight 61.8 kg (09/23/23 10:39 AM) Weight Obtained Via Standing scale (09/23/23 10:39 AM) Dry Weight Obtained Via Standing scale (09/23/23 10:39 AM) Social History Social History Type Response Smoking Status Never (less than 100 in lifetime) entered on: 06/09/18 Sex Patient Care team information Care Team Personnel Name: Arben Tamayo MD Position: [facility] Physician - Gastroenterology Member Role: Lifetime Consulting Physician Address: Address: [address] [place] [address], [facility] [address] [facility] [place] [address]- Name: Becky Neff MD Position: [facility] Physician - Primary Care Member Role: PCP Address: Address: [address] [place] [address] [place] [address]- Care Team Related Persons Name: CHRISSIE RANGEL Address: home [address] [place] [address]
--- OUTSIDE RECORDS SUMMARY | 2023-11-17 05:36 | XMS_ITS | Continuity of Care Document ---
Author Organization [facility] Address [address] [place] [id number] Care Team Providers Care Retail Account Executive Name Role Phone NOT IN DICTIONARY Primary Care Physician Unavail able Encounter [facility] Acct Nbr Pool [id number] Date(s): 01/28/22 - 01/28/[address] [address] Encounter Diagnosis Migraine(Discharge Diagnosis) - 01/28/22 Discharge Disposition: 01 Home Attending Physician: TABBY HECK Admitting Physician: TABBY HECK Allergies, Adverse Reactions, Alerts No Known Allergies Medications Apri 0.15 mg-0.03 mg oral tablet 1 TAB, PO, QDay, Take 21 days of active tablets then skip placebos and start the next pack. Start Date: 01/28/22 Status: Ordered sumatriptan 100 mg oral tablet 100 MG = 1 TAB, PO, QDay, PRN as needed for migraine headache, May repeat dose in 2 hours if needed. Start Date: 01/28/22 Status: Ordered Problem List Diagnosis Diagnosis Type Effective Dates Health Status Clini malvin Service Informant Migraine Discharge Diagnosis 01/28/22 Non-Specified Vital Signs Most recent to oldest [Reference Range]: 1 Temperature Oral [35.8-37.3 DegC] 36.6 D egC (01/28/22 1:54 AM) Peripheral Pulse Rate [60-100 bpm] 77 bp m (01/28/22 4:07 AM) Respiratory Rate [14-20 br/min] 16 br/mi n (01/28/22 4:07 AM) Blood Pressure [90-140/60-90 mmHg] 118/6 2mmHg (01/28/22 4:07 AM) Dosing Weight 69 KG (01/28/22 1:54 AM) Social History Social History Type Response Smoking Status Never smoker Sex Female Care Team Care Team Personnel Name: [id number] -NOT IN DICTIONARY, Member Role: Primary Care Physician Care Team Related Persons Name: CHRISSIE RANGEL, [id number]
--- OUTSIDE RECORDS SUMMARY | 2023-11-17 05:36 | XMS_ITS | Continuity of Care Document ---
Author Organization [facility] Lucero n's [facility] Address [address] [place] [address], 4[place] [address]- Care Team Providers Care Laborer Petroleum Refinery Name Role Phone Becky Neff MD Primary Care Physician [place] [facility] - 09/05/23 [facility] [place] [employer] [facility] [address] [facility], [address] [place] [address]- Allergies, Adverse Reactions, Alerts No Known Allergies [...] Refills, Maintenance, 08/13/23 13:34:00 EST, Capsule, [id number], Partial fill upon patient request if the [...] tablet, 0 Refills, Maintenance, 08/26/23 8:04:00 EST, [facility] STORE [id number], 84, TAKE 1 TABLET BY MOUTH DAILY,TAKE [...] tablet, 11 Refills, Maintenance, 02/20/23 17:05:00 EDT, [facility]/pharmacy #[id number], 168,cm, 07/19/22 8:44:00 EST, Height [...] Team Personnel Name: Arben Tamayo MD Position: [facility] Physician - Gastroenterology Member Role: Lifetime Consulting Physician Address: Address: [address] [place] [address], [address] [facility] [place] [address]- Name: Becky Neff MD Position: [facility] Physician - Primary Care Member Role: PCP Address: Address: [address] [facility] [place] [address]- Care Team Related Persons Name: CHRISSIE RANGEL Address: home [address] [place] [id number]
--- OUTSIDE RECORDS SUMMARY | 2023-11-17 05:36 | XMS_ITS | Continuity of Care Document ---
Author Organization [facility] [place] [employer] [facility] Address [address] [place] [address], 4[address] [place] [address]- Care Team Providers Care Slide Attendant Name Role Phone Bekcy Neff MD Primary Care Physician Encounter [facility] Date(s): 07/13/20 - 08/12/20 [facility] [employer] [facility] [address] [facility], [address] [place], [place] [address] Allergies, Adverse Reactions, Alerts Substance Reaction Severity [...]
--- OUTSIDE RECORDS SUMMARY | 2023-11-17 05:36 | XMS_ITS | Continuity of Care Document ---
Author Organization [facility] Address [address] [place] [address], [address] [place] [address]- Care Team Providers Care Organic Search Lead Name Role Phone Becky Neff MD Primary Care Physician [phone] [id number] Date(s): 09/23/23 - 10/23/23 [facility] [employer] [facility] [address] [facility], [address] [place], [place] [address] Attending Physician: Admfigueroa, Magdalena Admitting Physician: [id number] Referring Physician: Admtr, Ar8 Allergies, Adverse Reactions, [...] Refills, Maintenance, 08/13/23 13:34:00 EST, [facility]apsule, [id number], Partial fill upon patient request if the [...] tablet, 3 Refills, Maintenance, 09/23/23 10:49:00 EDT, [facility]/pharmacy #[id number], 84, TAKE 1 TABLET BY MOUTH [...] tablet, 11 Refills, Maintenance, 02/20/23 17:05:00 EDT, [facility]/pharmacy #[id number], 168,cm, 07/19/22 8:44:00 EST, Height Start [...] Team Personnel Name: Arben Tamayo MD Position: [facility] Physician - Gastroenterology Member Role: Lifetime Consulting Physician Address: Address: [address] [place] [address], [address] [facility] [place] [address]- [place] Name: Becky Neff MD Position: [facility] Physician - Primary Care Member Role: PCP Address: Address: [address] [facility] [place] [address]- Care Team Related Persons Name: CHRISSIE RANGEL Address: home [address] [place] [id number]
--- OUTSIDE RECORDS SUMMARY | 2023-11-17 05:36 | XMS_ITS | Continuity of Care Document ---
Author Organization [facility] Lucero n's [facility] Address [address], 4t [place] [address]- Care Team Providers Care Edge Inker Name Role Phone Tawanda DIALLO, Becky Corrigan Primary Care Physician [place] [facility] [place] [facility] [address], [address] [place] [address]- Allergies, Adverse Reactions, Alerts Substance Reaction Severity Status NKA Active Immunizations Given and Recorded Vaccine Date Status Refusal Reason influenza virus vaccine, inactivated 04/24/20 Madi rded tetanus/diphtheria/pertussis, acel(Tdap) 08/17/16 Given Medications acyclovir 400 mg oral tablet 1 capsule, By Mouth, 3 times a day, # 15 capsule, 3 Refills, Maintenance, 07/13/20 9:06:00 EST, Capsule, [facility]/pharmacy #[id number], Partial fill upon patient request if [...] each, 0 Refills, Maintenance, 06/27/20 13:26:00 EST, [facility]/pharmacy #[id number], Partial fill upon patient request if the [...]
--- OUTSIDE RECORDS SUMMARY | 2023-11-17 05:36 | XMS_ITS | Continuity of Care Document ---
Author Organization [facility] Lucero nDocea Powers [facility] Address [address] [facility], 4t [place] [address]- Care Team Providers Care Experiential Therapist Name Role Phone Tawanda DIALLO, Becky Corrigan Primary Care Physician [place] [facility] [place]s): 06/17/19 - [facility]/27/19 [facility] [address] [facility], [address] [place] [address]- Attending Physician: Magdalena Patten Admitting Physician: Magdalena Patten Referring Physician: Magdalena Patten Allergies, Adverse Reactions, Alerts Substance Reaction Severity Status NKA Active Immunizations Given and Recorded Vaccine Date Status Refusal Reason tetanus/diphtheria/pertussis, acel(Tdap) 08/17/16 Given Problem List Condition Effective Dates Status Health Status Inform ant Chronic constipation(Confirmed) 10/05/14 Active Family history of colon canc er in sister(Confirmed) Active Migraine(Confirmed) Active Pituitary microadenoma non-functioning(Confirmed) Active Thrombocytopenia(Confirmed) Active 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
--- OUTSIDE RECORDS SUMMARY | 2023-11-17 05:36 | XMS_ITS | Continuity of Care Document ---
Author Organization [facility] Chilango Barker [employer]eglea [employer] [facility] Address [address] [facility], 4t [place] [address]- Care Team Providers Care Senior Behavioral Scientist Name Role Phone Tawanda DIALLO, Becky Corrigan Primary Care Physician [facility] [facility] [place] Date(s): 06/16/19 - 07/17/19 [facility] [place] [employer] [facility] [address] [facility], 4th [place] [address]- Attending Physician: Swetha Luis MD Referring Physician: Not on Staff, Referring [...]
--- OUTSIDE RECORDS SUMMARY | 2023-11-17 05:36 | XMS_ITS | Continuity of Care Document ---
Author Organization [facility] Address [address] [place] [address]- Care Team Providers Care Director Skills Name Role Phone Becky Neff MD Primary Care Physician [place] [facility] [place] 02/10/20 - 04/14/[address] [address]- [facility] Attending Physician: Servando Clark MD Admitting Physician: [...]
--- OUTSIDE RECORDS SUMMARY | 2023-11-17 05:36 | XMS_ITS | Continuity of Care Document ---
Author Organization [facility] Address [address] [address]- Care Team Providers Care Policy Issue Clerk Name Role Phone Becky Neff MD Primary Care Physician [phone] [place] [facility](s[place] 02/10/20 - 03/11/20 [facility] [address] [facility] [address] [place] [address] [facility] Allergies, Adverse Reactions, Alerts Substance Reaction Severity [...]
--- OUTSIDE RECORDS SUMMARY | 2023-11-17 05:36 | XMS_ITS | Continuity of Care Document ---
Author Organization [facility] Lucero ns [facility] Address [address] [facility], 4t [place] [address]- Care Team Providers Care Business Technology Teacher Name Role Phone Tawanda DIALLO, Becky Corrigan Primary Care Physician [phone] Encounter [facility] Date(s): 09/10/22 - 10/10/22 [facility] [employer] [facility] [address] [facility], 4th [place] [address]- Allergies, Adverse Reactions, Alerts No Known Allergies [...] # 15 tablet, 3 [facility]ills, [id number], 168, cm, 07/17/21 11:23:00 EST, Height, 64, kg, 09/22/20 9:20:00 EDT, Dry Weight Start Date: 10/19/21 Status: Ordered acyclovir 400 mg oral tablet 1 capsule, By Mouth, 3 times a day, # 15 capsule, 3 Refills, Maintenance, 07/13/20 9:06:00 EST, [facility]aps[facility], [id number], Partial fill upon patient request if the prescription is for a schedule IIopioid drug., 169, cm, 05/09/20 10:10:00 EST, Height Start Date: 07/13/20 Stop Date: 08/02/20 Status: Ordered Apri 0.15 mg-0.03 mg oral tablet See Instructions, 1 TABLET BY MOUTH DAILY,TAKE 21 DAYS OF ACTIVE TABLETS THEN SKIP PLACEBOS AND START THE NEXT PACK, # 112 tablet, 0 Refills, 09/11/22 11:19:00 EST, [facility]/pharmacy #[id number], 84, 1 TABLET BY MOUTH DAILY,TAKE [...] Refills, Maintenance, 06/29/22 12:47:00 EST, [id number], 168, cm,07/17/21 11:23:00 EST, Height, 64, kg, [...] Team Personnel Name: Arben Tamayo MD Position: [facility] MD Member Role: Lifetime Consulting Physician Address: Address: [address] [place] [address], [address] [facility] [place] [address]- Name: Becky Neff MD Position: [facility] Primary Care Physician Member Role: PCP Address: Address: [address] [facility] [place] [address]- Care Team Related Persons Name: CHRISSIE RANGEL Address: home [address] [place] [address]
[2023-11-17 06:25] VITALS: BP 104/67; PULSE 71; RESP 16; TEMP 36.9; O2SAT 99
--- NOTE | 2023-11-17 06:36 | ED.HA ---
HPI - Headache General Chief Complaint: Headache Stated Complaint: migraine Time Seen by Provider: 11/17/23 06:28 Source: patient Mode of arrival: ambulatory Limitations: no limitations History of Present Illness HPI Narrative: 53-year-old female with history of migraine headaches presents to the ER for evaluation of a migraine headache that started yesterday at 14:00. It is associated with nausea and vomiting. She states it feels like a pick ax in the middle of her head. She has a history of migraines in his usually on sumatriptan at home. She states she did not take it early enough and it has been persisting. She states in the past when her headaches get like this she comes to the emergency room for subcu Imitrex and has great improvements. She is asking for Imitrex injection. She denies any vision changes, no weakness, numbness, tingling. No trauma. MD elicited complaint: migraine Pertinent past history: migraines Onset (ago): day(s) (1) Onset description: suddenly Location: frontal Severity: severe Quality & Timing: throbbing Exacerbating factors: light and noise Relieving factors: rest and prescription medication Associated symptoms: nausea and vomiting Treatments prior to arrival: migraine medication Related Data Previous Rx's ?Medication ?Instructions ?Recorded ondansetron 4 mg disintegrating 4 mg PO BEDTIME PRN nausea and 08/25/21 tablet vomiting 3 days #10 tabs ondansetron 4 mg disintegrating 4 mg PO BEDTIME PRN nausea and 11/17/23 tablet vomiting #7 tabs Allergies Allergy/AdvReac Type Severity Reaction Status Date / Time No Known Allergies Allergy Verified 11/17/23 03:39 Review of Systems Review of Systems: Yes all other systems are reviewed and are negative PMFSH Past Medical History Medical History Migraine Social History Social History Smoked in Last 30 Days: No Use of substances other than those prescribed or required for medical reasons: No Advance Directives: No Advance Directives Information Provided: No Do you have a plan to hurt others: No Plan Patient : No Physical Exam Vital Signs: Vital Signs: Last Vital Signs Temp 98.5 F 11/17/23 07:03 Pulse 71 11/17/23 07:03 Resp 16 11/17/23 07:03 BP 104/67 11/17/23 07:03 Pulse Ox 99 11/17/23 07:03 O2 Del Method Room Air 11/17/23 07:03 BMI result Body Mass Index 21.0 Appearance: Alert. Oriented X3. No acute distress. Head: normocephalic, atraumatic. Eyes: Pupils equal, round and reactive to light. ENT: Pharynx normal. No tonsillar swelling or exudate. Neck: Normal inspection. Neck supple. CVS: Normal heart rate and rhythm. Pulses normal. Respiratory: No respiratory distress. Breath sounds normal. Abdomen: Soft and nontender. +BS x4 Skin: Skin warm and dry. Normal skin color. Normal skin turgor. No rashes. Extremities: No lower extremity edema. No joint swelling. Neuro/psych: Oriented X 3. No motor deficit. No sensory deficit. CN II-XII intact. Normal speech and cognition. Medications Administered Discontinued Medications Generic Name Dose Route Start Last Admin Trade Name Freq PRN Reason Stop Dose Admin Ondansetron HCl 4 mg 11/17/23 03:50 11/17/23 03:52 Ondansetron Odt 4 Mg Tab.Rapdis TRANSLINGU 11/17/23 03:51 4 mg ONCE ONE Administration Sumatriptan Succinate 6 mg 11/17/23 06:40 11/17/23 06:59 Sumatriptan Succinate 6 Mg/0.5 Ml Vial SUBCUT 11/17/23 06:41 6 mg ONCE ONE Administration Medical Decision Making Medical Decision Making MDM Narrative: 53-year-old female with a history of migraines presents the ER for evaluation of a migraine headache that started yesterday. She is nonfocal on exam. No need for head imaging today. This is typical of her usual migraines. Subcu Imitrex has been ordered and patient would like to be discharged home to rest in her own bed. She was given sublingual Zofran with no episodes of vomiting while in the emergency department. She is stable for discharge with outpatient follow-up. Return precautions were discussed. Differential Diagnosis Differential Diagnoses: The differential diagnosis associated with the presentation includes Migraine headache, cluster headache, tension headache, viral syndrome, low suspicion for organic cause External Record Review External record reviewed: Outpatient record Tests considered The following testing was considered but not selected: CT head considered as patient has never had one here Prescription Management I considered prescription management with: Pain Medication Chronic Conditions Patient?s care impacted by: Other (migraines) Critical Care Time Critical Care Time Critical Care Time: No Discharge Plan Discharge Clinical Impression: Migraine Patient Disposition: Home, Self-Care Instructions: Migraine Headache (ED) Additional Instructions: Continue your Imitrex at home as needed for migraines. You can also try Excedrin migraine. Follow-up with your doctor. Take the prescribed Zofran as needed for nausea and vomiting. If you develop new or worsening symptoms call 911 or come back to the ER for further evaluation. Prescriptions: New ondansetron 4 mg tablet,disintegrating 4 mg PO BEDTIME PRN (Reason: nausea and vomiting) Qty: 7 0RF No Action ondansetron 4 mg tablet,disintegrating 4 mg PO BEDTIME PRN (Reason: nausea and vomiting) 3 Days Qty: 10 0RF Interventions: ED Discharge Assessment Last Done: 11/17/23 07:03 Discharge Date/Time: 11/17/23 07:05 Print Language: Spanish
[2023-11-17] MEDS: SUMAtriptan succinate 6 MG/0.5 ML VIAL SUBCUT (06:59)
[2023-11-17 07:03] VITALS: BP 104/67; PULSE 71; RESP 16; TEMP 36.9; O2SAT 99
--- NOTE | 2023-11-17 07:03 | PC.NURSE ---
Pt medicated per sep. Plan of care ongoing.
== END 2023-11-17 07:05 | disposition home or self-care (01) ==
PROVIDERS: Emergency Provider Internal Medicine; PCP Internal Medicine
DX: G43.909 Migraine, unspecified, not intractable, without status migrainosus (principal); R11.2 Nausea with vomiting, unspecified
CPT/HCPCS: 96372; 99284; J3030